=== PATIENT | male | born 1980 ===

== ENCOUNTER 2021-07-31 15:38 | Emergency (ER) | payer MEDICAID ==
[~2021-07-31] VITALS: Ht 152.4 cm; Wt 56.8 kg
[2021-07-31 16:18] VITALS: BP 110/74
[2021-07-31 17:24] LABS: COVID AG,FIA SOURCE NASOPHARYNGEAL
== END 2021-07-31 18:25 | disposition home or self-care (01) ==
LOC: EMS 15:59
DX: Z20.822 Contact with and (suspected) exposure to COVID-19 (principal)
CPT/HCPCS: 99283